=== PATIENT | female | born 1975 | race Caucasian/White ===

== ENCOUNTER 2018-11-25 00:11 | Emergency (ER) | payer SELFPAY ==
[~2018-11-25] VITALS: Ht 162.6 cm; Wt 76.2 kg
--- NOTE | 2018-11-25 00:15 | NUR ---
PT BIBS. C/O "HAD SOME OYSTERS, X7 HRS AGO, BEEN VOMITING EVER SINCE" +N/V NOTED. -SOB -ACUTE DISTRESS AT THIS TIME. PT AOX4.
[2018-11-25] MEDS ORDERED: FAMOTIDINE/PF INJ 20 MG/2 ML VIAL IV ONE ×2 (00:21→01:00)
[2018-11-25] MEDS ORDERED: ONDANSETRON HCL/PF 4 MG/2 ML VIAL ONE (00:21)
[2018-11-25 00:52] LABS: BASOPHILS % (AUTO) 0.6 % (0.0-2.0); EOSINOPHILS % (AUTO) 0.4 % (0.0-6.0); HEMATOCRIT 44 % (33-45); HEMOGLOBIN 14.8 g/dL (11.5-14.8); LYMPHOCYTES # (AUTO) 0.8 /CMM (0.8-4.8); LYMPHOCYTES % (AUTO) 10.3 % (20.0-44.0); MEAN CORPUSCULAR HGB CONC 33 g/dl (31.0-36.0); MEAN CORPUSCULAR VOLUME 93 fL (82-100); MONOCYTES # (AUTO) 0.2 /CMM (0.1-1.30); MONOCYTES % (AUTO) 3.1 % (2.0-12.0); NEUTROPHILS # (AUTO) 6.8 /CMM (1.8-8.9); NEUTROPHILS % (AUTO) 85.6 % (43.0-81.0); PLATELET COUNT (AUTO) 310 /CMM (150-450); RED BLOOD CELL COUNT(AUTO) 4.78 MIL/uL (4.0-5.2); WHITE BLOOD COUNT (AUTO) 7.9 K/uL (4.3-11.0)
[2018-11-25] MEDS ORDERED: IV NS 0.9% 1,000 ML BAG IV ONE ×2 (01:00→02:00)
[2018-11-25] MEDS ORDERED: ONDANSETRON HCL/PF 4 MG/2 ML VIAL IVP ONE (01:00)
[2018-11-25 01:02] LABS: CALCIUM, SERUM 9.2 mg/dL (8.5-10.1); CREATININE 0.8 mg/dL (0.6-1.3); POTASSIUM 3.6 mmol/L (3.5-5.1)
[2018-11-25 01:08] LABS: ALBUMIN 4.2 g/dL (3.4-5.0); BILIRUBIN,DIRECT 0.1 mg/dL (0.0-0.2); BILIRUBIN,TOTAL 0.7 mg/dL (0.2-1.0); TOTAL PROTEIN, SERUM 9.2 g/dL (6.4-8.2)
[2018-11-25] MEDS ORDERED: LORAZEPAM INJ 2 MG/ML VIAL ONE (01:23)
[2018-11-25] MEDS ORDERED: LORAZEPAM INJ 2 MG/ML VIAL IV ONE ×2 (01:30)
[2018-11-25 04:00] VITALS: BP 144/88
== END 2018-11-25 04:01 | disposition home or self-care (01) ==
LOC: ER 00:13
DX: K52.9 Noninfective gastroenteritis and colitis, unspecified (principal); E86.0 Dehydration
CPT/HCPCS: 36415; 80048; 80076; 83690; 85025; 96361; 96374; 96375; 99283; J2060; J2405; J3490; J7030 ×2